=== PATIENT | male | born 1940 | race Caucasian/White ===

== ENCOUNTER 2018-07-02 17:39 | Emergency (ER) | payer MEDICARE ==
[2018-07-02] MEDS: LIDOCAINE 2%/EPI (MDV) 20ML INJ INJ (18:18)
[2018-07-02] MEDS: DIPHTH/TET/ACEL PERTUSS (ADULT) 0.5 ML VIAL IM* (18:19)
== END 2018-07-02 20:55 | disposition home or self-care (01) ==
LOC: FTE 17:39
DX: S81.811A Laceration without foreign body, right lower leg, initial encounter (principal); J44.9 Chronic obstructive pulmonary disease, unspecified; I50.9 Heart failure, unspecified; W26.8XXA Contact with other sharp object(s), not elsewhere classified, initial encounter; Y92.9 Unspecified place or not applicable; Z23 Encounter for immunization
CPT/HCPCS: 12002; 73590; 90471; 90715; 99283-25